=== PATIENT | male | born 1960 | race African-American/Black ===

== ENCOUNTER 2018-08-18 09:17 | Emergency (ER) | payer MEDICAID ==
[~2018-08-18] VITALS: Ht 182.9 cm; Wt 127.0 kg
[2018-08-18] MEDS ORDERED: IBUPROFEN 600MG TABLET PO ONE (11:30)
[2018-08-18 12:04] VITALS: BP 143/89
== END 2018-08-18 12:06 | disposition home or self-care (01) ==
LOC: ER 11:01
DX: M25.561 Pain in right knee (principal); I10 Essential (primary) hypertension; F17.210 Nicotine dependence, cigarettes, uncomplicated
CPT/HCPCS: 99282; L1830; Z7610